=== PATIENT | male | born 1960 | race Caucasian/White ===

== ENCOUNTER 2017-01-16 00:32 | Emergency (ER) | payer BC ==
[~2017-01-16] VITALS: Ht 177.8 cm; Wt 110.0 kg
[~2017-01-16 00:32] MED LIST: CEPH500C2 PO; TADA10TA PO
[2017-01-16 00:35] VITALS: TEMP 37; Ht 177.8 cm; Wt 110.0 kg
[2017-01-16] MEDS ORDERED: SODIUM CHLORIDE 0.9% 1000ML 1,000 ML IV STA (00:59)
[2017-01-16] MEDS ORDERED: KETOROLAC TROMETHAMINE 30 MG/ML VIAL IV STA (01:09)
[2017-01-16 01:14] LABS: BASO % 0.8 %; BASO ABS # 0.05 K/uL (0-0.2); COMPLETE YES; EOS % 3.9 %; HEMATOCRIT 43.5 % (42-52); IG% 0.2 %; LYMPH ABS # 2.15 K/uL (1.2-3.4); MEAN CELL VOLUME 90.4 fL (80-100); MEAN CORPUSCULAR HEMOGLOBIN 30.6 pg (25-34); MEAN CORPUSCULAR HGB CONC 33.8 g/dl (32-36); MEAN PLATELET VOLUME 9.5 fL (7.4-10.4); MONO % 13.4 %; NEUT % 46.7 %; PLATELET COUNT 232 K/uL (130-400); RED BLOOD COUNT 4.81 M/uL (4.7-6.1); WHITE BLOOD COUNT 6.14 K/uL (4.8-10.8)
[2017-01-16] MEDS ORDERED: OPTIRAY 320 IV PRN (01:15)
[2017-01-16 01:35] LABS: BUN/CREATININE RATIO 27.6 (10-20); CALCIUM 8.9 mg/dl (8.5-10.1); CREATININE 0.86 mg/dl (0.60-1.40); POTASSIUM 3.8 mmol/L (3.5-5.1)
[2017-01-16 01:37] LABS: ALB/GLOB RATIO 1.2 (0.9-2)
--- NOTE | 2017-01-16 01:38 | EMERGENCY ROOM VISIT NOTE ---
History First contact with patient: 00:41 Chief Complaint: ABDOMINAL PAIN Stated Complaint: ABD PAIN Nursing Triage Summary: c/o left upper quadrant pain for 3 days. threw alot of heavy stuff earlier today and tonight pain got worse with swelling in the luq. History of Present Illness The patient is a 56 year old male who presents to the Emergency Room with complaints of abdominal pain which began 2-3 days ago. The patient states that he has had pain in his left upper abdomen for the past 2-3 days. His pain was initially mild, but has been worsening. He states that the pain is now constant and rates it a 4/10, however he also has intermittent episodes of more severe pain which he rates a 9/10. The patient has a history of kidney stones and states this is not similar. The patient states the pain is below his rib cage. He has nausea, but no vomiting. He states that his bowel movements have been less consistent than normal recently, but denies any diarrhea or constipation. He denies fevers/chills or urinary symptoms. The patient denies any history of abdominal surgeries. He does report a history of intermittent atrial fibrillation and takes metoprolol for this. Review of Systems A complete 10 point review of systems was reviewed with the patient with pertinent positives and negatives as per history of present illness. All else were negative. Social History Smoking Status: Former Smoker Drug Use: none Occupation Status: employed Current/Historical Medications Scheduled Cephalexin Monohydrate (Keflex), 500 MG PO TID Tadalafil (Cialis), 20 MG PO DAILY Allergies Coded Allergies: Erythromycin (Verified Allergy, Unknown, GI SYMPTOMS, 09/27/14) Physical Exam Vital Signs Date Time Temp Pulse Resp B/P (MAP) Pulse Ox O2 Delivery O2 Flow Rate FiO2 01/16/17 04:12 59 18 113/68 97 Room Air 01/16/17 01:59 54 18 123/67 97 Room Air 01/16/17 00:35 37.0 73 18 136/84 98 Room Air Physical Exam VITALS: Vitals are noted on the nurse's note and reviewed by myself. Vital signs stable. GENERAL: This is a 56-year-old male, in no acute distress, nondiaphoretic, well- developed well-nourished. EARS: External auditory canals clear, tympanic membranes pearly lorenzo without erythema or effusion bilaterally. EYES: Pupils equal round and reactive to light and accommodation. Conjunctivae without injection, sclerae without icterus. MOUTH: Mucous membranes moist. NECK: Supple without nuchal rigidity. No lymphadenopathy. HEART: Regular rate and rhythm without murmurs gallops or rubs. LUNGS: Clear to auscultation bilaterally without wheezes, rales or rhonchi. ABDOMEN: Positive bowel sounds 4. Tenderness noted to the left upper quadrant. No masses or organomegaly. NEURO: Patient was alert and oriented to person place and time. Medical Decision & Procedures ER Provider Diagnostic Interpretation: CT ABDOMEN & PELVIS: No evidence of acute process. Indeterminate small heterogeneous hypodense focus in the posterior cortex of the upper right kidney. Recommend ultrasound for further evaluation. Small cyst in the lower pole of the right kidney. Liver, gallbladder, pancreas, spleen, and adrenals are unremarkable. No free fluid. No free air. The bowel is normal caliber. Appendix is normal. Radiologist: Fortino Michel Laboratory Results 01/16/17 01:00 Red Blood Count 4.81, Mean Corpuscular Volume 90.4, Mean Corpuscular Hemoglobin 30.6, Mean Corpuscular Hemoglobin Concent 33.8, Mean Platelet Volume 9.5, Neutrophils (%) (Auto) 46.7, Lymphocytes (%) (Auto) 35.0, Monocytes (%) (Auto) 13.4, Eosinophils (%) (Auto) 3.9, Basophils (%) (Auto) 0.8, Neutrophils # (Auto ) 2.87, Lymphocytes # (Auto) 2.15, Monocytes # (Auto) 0.82, Eosinophils # (Auto ) 0.24, Basophils # (Auto) 0.05 01/16/17 01:00 Test 01/16/17 01:00 01/16/17 03:52 White Blood Count 6.14 K/uL (4.8-10.8) Red Blood Count 4.81 M/uL (4.7-6.1) Hemoglobin 14.7 g/dL (14.0-18.0) Hematocrit 43.5 % (42-52) Mean Corpuscular Volume 90.4 fL (80-100) Mean Corpuscular Hemoglobin 30.6 pg (25-34) Mean Corpuscular Hemoglobin Concent 33.8 g/dl (32-36) Platelet Count 232 K/uL (130-400) Mean Platelet Volume 9.5 fL (7.4-10.4) Neutrophils (%) (Auto) 46.7 % Lymphocytes (%) (Auto) 35.0 % Monocytes (%) (Auto) 13.4 % Eosinophils (%) (Auto) 3.9 % Basophils (%) (Auto) 0.8 % Neutrophils # (Auto) 2.87 K/uL (1.4-6.5) Lymphocytes # (Auto) 2.15 K/uL (1.2-3.4) Monocytes # (Auto) 0.82 K/uL (0.11-0.59) Eosinophils # (Auto) 0.24 K/uL (0-0.5) Basophils # (Auto) 0.05 K/uL (0-0.2) RDW Standard Deviation 44.6 fL (36.4-46.3) RDW Coefficient of Variation 13.5 % (11.5-14.5) Immature Granulocyte % (Auto) 0.2 % Immature Granulocyte # (Auto) 0.01 K/uL (0.00-0.02) Anion Gap 7.0 mmol/L (3-11) Est Creatinine Clear Calc Drug Dose 120.5 ml/min Estimated GFR () 113.1 Estimated GFR (Non- 97.6 BUN/Creatinine Ratio 27.6 (10-20) Calcium Level 8.9 mg/dl (8.5-10.1) Total Bilirubin 0.6 mg/dl (0.2-1) Aspartate Amino Transf (AST/SGOT) 20 U/L (15-37) Alanine Aminotransferase (ALT/SGPT) 24 U/L (12-78) Alkaline Phosphatase 81 U/L (45-117) Total Protein 7.1 gm/dl (6.4-8.2) Albumin 3.8 gm/dl (3.4-5.0) Globulin 3.3 gm/dl (2.5-4.0) Albumin/Globulin Ratio 1.2 (0.9-2) Lipase 116 U/L (73-393) Urine Color YELLOW Urine Appearance CLEAR (CLEAR) Urine pH 5.0 (4.5-7.5) Urine Specific Grace 1.010 (1.000-1.030) Urine Protein TRACE (NEG) Urine Glucose (UA) NEG (NEG) Urine Ketones TRACE (NEG) Urine Occult Blood NEG (NEG) Urine Nitrite NEG (NEG) Urine Bilirubin NEG (NEG) Urine Urobilinogen NEG (NEG) Urine Leukocyte Esterase NEG (NEG) Urine RBC 0-4 /hpf (0-4) Urine WBC 0 /hpf (0-5) Urine Epithelial Cells 10-20 /lpf (0-5) Urine Bacteria NEG (NEG) Medications Administered Medications (Trade) Dose Ordered Sig/Sara Route Start Time Stop Time Status Last Admin Dose Admin Sodium Chloride 1,000 ml @ 999 mls/hr Q1H1M STAT IV 01/16/17 00:59 01/16/17 01:59 DC 01/16/17 01:21 999 MLS/HR Ketorolac Tromethamine (Toradol Inj) 30 mg NOW STAT IV 01/16/17 01:09 01/16/17 01:11 DC 01/16/17 01:21 30 MG ECG Indication: abdominal pain Rate (beats per minute): 62 Rhythm: normal sinus Findings: no acute ischemic change, no ectopy ED Course The patient was evaluated as above. Labs were drawn and IV access was obtained. Patient was medicated with 1 L normal saline solution and [address] abdomen/pelvis was performed and read by eriberto as above. Patient was reevaluated and findings were discussed with the patient. He is resting comfortably and states the symptoms have improved. Discharge instructions were reviewed with the patient. The patient verbalized understanding of my assessment and treatment plan and was discharged home in good condition. Medical Decision Differential diagnosis includes cholecystitis, pancreatitis, gastroenteritis, gastritis, bowel obstruction, pyelonephritis, kidney stone, among others. The patient is a 56-year-old male who presents today complaining of left upper quadrant abdominal pain. Labs revealed no leukocytosis, anemia or concerning electrolyte abnormalities. Urinalysis was not suggestive of infection. CT of the abdomen and pelvis was performed and showed a questionable finding of the right kidney, recommend ultrasound and follow-up. There were no acute infectious or inflammatory findings within the abdomen or pelvis. Patient has no right sided abdominal or flank pain and I do not feel this is an acute finding. He was informed of this and instructed to follow-up with his primary care provider for outpatient workup. The patient was treated with Toradol with improvement of his symptoms. I do not suspect cardiac or pulmonary source of this pain, as the patient does have palpable tenderness in the abdomen. He may have a muscle spasm or muscle strain. Based on the patient's presentation and work up, I feel the patient is stable for outpatient treatment. The patient was educated to return to the emergency department for any worsening of their current condition or new/concerning symptoms. He will follow up with his PCP. The patient's case was reviewed with Dr. Huitron, ED attending physician, who agreed with my assessment and treatment plan. Medication reconciliation: I attest that I have personally reviewed the patient 's current medication list. Blood pressure screening: Patient was found to have normal blood pressure on screening and does not require follow-up. Impression Primary Impression: Left upper quadrant pain Departure Information Dispostion Home / Self-Care Condition GOOD Referrals Sahil Dixon M.D. ([facility] (PCP) Patient Instructions My [facility] Additional Instructions You have been treated in the Emergency Department for your Abdominal Pain. Laboratory results and imaging studies have ruled out any emergent causes for your abdominal pain which would warrant admission or surgery. For pain control, you can use the following [id number] medicines (if >12 yo): - Regular strength (325mg/tab) Tylenol (acetaminophen) 2 tabs every 4-6 hours as needed. Do not exceed 12 tablets in a 24 hour period. Avoid taking more than 4 grams (4000 mg) of Tylenol per day. This includes any other sources of acetaminophen you may take on a regular basis. - Regular strength (200 mg/tab) Advil (ibuprofen) 1-2 tabs every 4-6 hours as needed. Do not exceed a dose of 3200 mg per day. Drink plenty of water and stay well hydrated. As with any trip to the Emergency Department, you should follow-up with your Primary Care Provider from today's visit. Call them first thing Wednesday morning to schedule a follow-up appointment. Return to the emergency department if your symptoms persist despite treatment plan outlined above or if the following symptoms occur: worsening pain, fever, or any other new/concerning symptoms.
[2017-01-16 04:12] VITALS: BP 113/68; PULSE 59; O2SAT 97
[2017-01-16 04:26] LABS: MANUAL MICROSCOPIC REQUIRED? YES; URINE APPEARANCE CLEAR (CLEAR); URINE BILIRUBIN NEG (NEG); URINE COLOR YELLOW; URINE NITRITE NEG (NEG); UROBILINOGEN NEG (NEG)
[2017-01-16 04:33] LABS: REVIEW REQ? NO
[2017-01-16 04:35] LABS: URINE BACTERIA NEG (NEG); URINE RBC 0-4 /hpf (0-4); URINE WBC 0 /hpf (0-5); ZZUR CULT IF INDIC CLEAN CATCH NO
--- NOTE | 2017-01-16 06:43 | DIAGNOSTIC IMAGING REPORT ---
ABDOMEN AND PELVIS CT WITH IV CONTRAST CT DOSE: 592.17 mGy.cm HISTORY: Left upper quadrant abdominal pain. TECHNIQUE: Multiaxial CT images of the abdomen and pelvis were performed following the use of intravenous contrast. A dose lowering technique was utilized adhering to the principles of ALARA. COMPARISON STUDY: None. FINDINGS: The lung bases are clear. Possible gallstones. The liver, spleen, adrenal glands, and pancreas are unremarkable. A 1 cm hypodense lesion within the lower pole the right kidney. This likely represents a cyst. Nonspecific 1.5 cm heterogeneous area within the upper pole of the right kidney on image 16. Normal left kidney. No retroperitoneal lymphadenopathy. Normal bladder. Colonic diverticulosis. No bowel wall thickening or obstruction. Normal appendix. IMPRESSION: 1. No bowel wall thickening or obstruction. 2. Normal appendix. 3. A 1.5 cm heterogeneous area within the right kidney. This could represent an area of scarring or less likely infection. Recommend follow-up nonemergent renal MRI to exclude a possible renal mass. 4. Suspect cholelithiasis. 5. Colonic diverticulosis. Electronically signed by: Tank Guzmán M.D. 01/16/2017 6:42 AM Dictated Date/Time: 01/16/2017 6:37 AM
== END 2017-01-16 04:49 | disposition home or self-care (01) ==
LOC: C.EDB 00:33
DX: R10.12 Left upper quadrant pain (principal); Z87.891 Personal history of nicotine dependence